=== PATIENT | male | born 1975 | race Caucasian/White ===

== ENCOUNTER 2017-09-15 13:37 | Emergency (ER) | payer OTHER, BC ==
[2017-09-15] MEDS: IBUPROFEN 800 MG TAB PO (15:22)
[2017-09-15] MEDS: ACETAMINOPHEN 500 MG TAB PO (15:23)
[2017-09-15] MEDS: SOD CHLORIDE 0.9% 1,000 ML IV ×2 (15:24)
[2017-09-15] MEDS ORDERED: CEFTRIAXONE 1 GM INJ IM (15:30)
[2017-09-15] MEDS: CEFTRIAXONE 1 GM/50 ML (PMX) 50 ML IVPB (15:44)
[2017-09-15 15:59] LABS: ADD MAN DIFF? NO
[2017-09-15 16:01] LABS: BASOPHILS % 0.2 % (0.0-2.0); HEMATOCRIT 42.8 % (42.0-52.0); HEMOGLOBIN 14.3 g/dl (14.0-18.0); LYMPHOCYTES # 0.9 10^3/ul (0.8-2.9); LYMPHOCYTES % 5.3 % (15.0-51.0); MEAN CORPUSCULAR HEMOGLOBIN 29.4 pg (29.0-33.0); MEAN CORPUSCULAR HGB CONC 33.4 g/dl (32.0-37.0); MEAN CORPUSCULAR VOLUME 88.1 fl (82.0-101.0); MEAN PLATELET VOLUME 10.9 fl (7.4-10.4); MONOCYTES % 5.9 % (0.0-11.0); NEUTROPHIL # 15.5 10^3/ul (1.6-7.5); PLATELET COUNT 313 10^3/UL (140-415); RED BLOOD COUNT 4.86 10^6/ul (4.70-6.10); RED CELL DISTRIBUTION WIDTH 13.5 % (11.5-14.5)
[2017-09-15 16:01] LABS: WHITE BLOOD COUNT 17.6 10^3/ul (4.8-10.8)
== END 2017-09-15 17:40 | disposition home or self-care (01) ==
LOC: FTE 13:37
DX: J02.0 Streptococcal pharyngitis (principal)
CPT/HCPCS: 36415; 71046; 85025; 87040; 87400; 87880; 96374; 99284-25

== ENCOUNTER 2017-09-17 17:20 | Emergency (ER) | payer OTHER ==
[2017-09-17] MEDS: CEFAZOLIN 2 GM/50 ML (PMX) 50 ML IVPB (19:00)
[2017-09-17 19:22] LABS: ADD MAN DIFF? NO
[2017-09-17 19:26] LABS: WHITE BLOOD COUNT 13.3 10^3/ul (4.8-10.8)
[2017-09-17 19:26] LABS: BASOPHILS % 0.2 % (0.0-2.0); EOSINOPHILS # 0.1 10^3/ul (0.0-0.5); HEMATOCRIT 42.4 % (42.0-52.0); HEMOGLOBIN 14.4 g/dl (14.0-18.0); LYMPHOCYTES # 2.4 10^3/ul (0.8-2.9); LYMPHOCYTES % 18.4 % (15.0-51.0); MEAN CORPUSCULAR HEMOGLOBIN 29.3 pg (29.0-33.0); MEAN CORPUSCULAR VOLUME 86.4 fl (82.0-101.0); MEAN PLATELET VOLUME 10.8 fl (7.4-10.4); MONOCYTE # 1.1 10^3/ul (0.3-0.9); MONOCYTES % 8.2 % (0.0-11.0); NEUTROPHIL # 9.5 10^3/ul (1.6-7.5); NEUTROPHILS % 71.7 % (39.0-77.0); PLATELET COUNT 303 10^3/UL (140-415); RED BLOOD COUNT 4.91 10^6/ul (4.70-6.10); RED CELL DISTRIBUTION WIDTH 13.3 % (11.5-14.5)
[2017-09-17] MEDS: morphine 4 MG/ML VIAL IV (19:29)
[2017-09-17] MEDS: SOD CHLORIDE 0.9% 1,000 ML IV (19:30)
[2017-09-17] MEDS: DEXAMETHASONE 10 MG/ML 1 ML INJ IV (19:30)
[2017-09-17] MEDS: ONDANSETRON 4 MG INJ IV (19:30)
[2017-09-17 19:41] LABS: PT RATIO 1.1
[2017-09-17 19:42] LABS: PARTIAL THROMBOPLASTIN TIME 33.7 Sec (25.0-35.0)
[2017-09-17 19:48] LABS: ALANINE AMINOTRANSFERASE 101 IU/L (13-69); ALBUMIN/GLOBULIN RATIO 1.05; ALKALINE PHOSPHATASE 157 IU/L (42-121); ANION GAP 17 (8-16); ASPARTATE AMINO TRANSFERASE 85 IU/L (15-46); BLOOD UREA NITROGEN 9 mg/dl (7-20); CALCIUM 9.1 mg/dl (8.4-10.2); CARBON DIOXIDE 26 mmol/L (21-31); CHLORIDE 103 mmol/L (97-110); GLUCOSE 112 mg/dl (70-220); POTASSIUM 3.7 mmol/L (3.5-5.1); SODIUM 142 mmol/L (135-144); TOTAL PROTEIN 7.8 g/dl (6.1-8.1)
[2017-09-17 20:04] LABS: INR 1.05; PROTIME 13.8 Sec (11.9-14.9)
[2017-09-17 20:52] LABS: MONOTEST Negative (NEG)
[2017-09-17 21:03] LABS: ADD UMIC YES; UR ASCORBIC ACID NEGATIVE (NEGATIVE); UR BILIRUBIN (Dip) NEGATIVE (NEGATIVE); UR BLOOD (Dip) 2+ mg/dL (NEGATIVE); UR CLARITY CLEAR (CLEAR); UR COLOR STRAW (YELLOW); UR GLUCOSE (Dip) NEGATIVE (NEGATIVE); UR KETONES (Dip) NEGATIVE (NEGATIVE); UR LEUKOCYTE ESTERASE (Dip) NEGATIVE Leu/ul (NEGATIVE); UR NITRITE (Dip) NEGATIVE (NEGATIVE); UR RBC 2 /HPF (0-5); UR SPECIFIC GRAVITY (Dip) 1.005 (1.003-1.030); UR TOTAL PROTEIN (Dip) NEGATIVE (NEGATIVE); UR UROBILINOGEN (Dip) NEGATIVE (NEGATIVE); UR WBC 1 /HPF (0-5)
[2017-09-17] MEDS: IOHEXOL 300MG/ML 150 ML BTL (22:06)
[2017-09-17] MEDS: SOD CHLORIDE 0.9% 100 ML (22:06)
== END 2017-09-18 00:04 | disposition home or self-care (01) ==
LOC: FTE 09-18 00:04
DX: J03.90 Acute tonsillitis, unspecified (principal); R06.02 Shortness of breath
CPT/HCPCS: 36415; 70491; 80053; 81001; 85025; 85610; 85730; 86308; 87880; 96374; 96375; 99285-25